=== PATIENT | male | born 1975 | race Caucasian/White ===

== ENCOUNTER 2017-02-24 06:59 | Emergency (ER) | payer MEDICAID, OTHER ==
[2017-02-24 06:59] VITALS: BMI 27.8
[2017-02-24] MEDS ORDERED: Sodium Chloride 0.9% 1,000 ML IV ONE ×2 (07:34→11:21)
[2017-02-24] MEDS ORDERED: Naloxone 0.4 mg/ml Inj (Adult) IV ONE ×2 (07:34→11:40)
[2017-02-24] MEDS ORDERED: Naloxone 0.4 mg/ml Inj (Adult) ONE ×2 (07:36→11:41)
[2017-02-24] MEDS ORDERED: Sodium Chloride 0.9% 1,000 ML ONE ×2 (07:36→11:21)
--- NOTE | 2017-02-24 07:55 | C.PDOC ---
History Of Present Illness 41-year-old male BIBA, "was found drowsy and intoxicated outside on street". At present time, pt appears drowsy, ambulatory, admits " took drug that supposed to be heroin". Pt denies nay other drug or alcohol use. Pt denies known trauma or injury. Admits, dryg use in past. Denies any other active physical complaints , denies CP, SOB, dyspnea, vomiting. Appears not in any apparent distress. Time Seen by Provider: 02/24/17 07:12 Chief Complaint (Nursing): Substance Abuse History Per: EMS History/Exam Limitations: intoxication Current Symptoms Are (Timing): Still Present Severity: Moderate Past Medical History Reviewed: Historical Data, Nursing Documentation, Vital Signs Vital Signs: Last Vital Signs Temp 98.6 F 02/24/17 13:38 Pulse 69 02/24/17 16:32 Resp 16 02/24/17 16:32 BP 93/52 L 02/24/17 16:32 Pulse Ox 96 02/24/17 16:32 - Medical History PMH: Anxiety, Back Problems, Depression, Fractures (ribs), Seizures - [facility] Procedures DRUG DETOXIFICATION (08/04/14) EXCISION OF ESOPHAGUS, ENDO, DIAGN (08/20/16) Family History: States: Unknown Family Hx - Social History Hx Tobacco Use: Yes Hx Alcohol Use: Yes Hx Substance Use: Yes - Immunization History Hx Tetanus Toxoid Vaccination: No Hx Influenza Vaccination: No Hx Pneumococcal Vaccination: No Review Of Systems Review Of Systems: ROS cannot be obtained secondary to pt's inabilty to answer questions. (intoxicated) Constitutional: Negative for: Fever, Chills Cardiovascular: Negative for: Chest Pain Respiratory: Negative for: Shortness of Breath Gastrointestinal: Negative for: Nausea, Vomiting Musculoskeletal: Negative for: Back Pain Physical Exam - Physical Exam Appears: Non-toxic, No Acute Distress, Other (No evidence of trauma/injury. Patient is arousable to verbal stimuli.) Skin: Warm, Dry, No Rash Head: Atraumatic, Normacephalic Eye(s): bilateral: PERRL (pinpoint B/L) Nose: No Flaring, No Discharge, No Deformity, No Tenderness Oral Mucosa: Moist, No Drooling Tongue: No Swelling, No Lesions, No Bleeding Lips: Normal Appearing, No Swelling, No Contusion Throat: No Drooling Neck: Normal ROM, Trachea Midline, No Midline Cervical Tenderness, No Paracervical Tenderness, No Step Off Deformity, Supple Chest: Symmetrical, No Deformity Cardiovascular: Rhythm Regular, No Murmur, No JVD Respiratory: No Decreased Breath Sounds, No Accessory Muscle Use, No Stridor, No Wheezing Gastrointestinal/Abdominal: Soft, No Tenderness, No Distention, No Guarding Back: No Vertebral Tenderness Extremity: Normal ROM, No Deformity, No Swelling Extremity: Bilateral: Atraumatic Neurological/Psych: Oriented x3, Normal Motor, Normal Sensation, Normal Reflexes ED Course And Treatment - Laboratory Results Result Diagrams: 02/24/17 09:11 02/24/17 09:11 ECG: Interpreted By Me, Viewed By Me ECG Rhythm: Sinus Rhythm ECG Interpretation: Normal Interpretation Of ECG: SR@73/min, NAD, T wave inversion in III, no acute ST-T changes. O2 Sat by Pulse Oximetry: 99 Pulse Ox Interpretation: Normal Progress Note: After initial assessment pt received Narcan 0.4 mg. Pt was placed on cardiac and PulseOx monitore. Hydartion with NS IVF. At 10:02, On re -eval, pt is arousable to verbal stimuli. Pt was given PO challenge, tolerated well, no vomiting. At 18:30, AAO#3. Ambulatoy rin Ed with stable gait. Afebrile, hemodynamicaly stable. non-toxic. neurologicaly intact. Continue hydration with IVF. Pt was OBS in ED for 6 hours. On re-eval,Pt is AAO#3, not in any apparent distress. Afebrile, hemodynamicaly stable. non-toxic. Tolerate po well in ED. neck: Supple. Lungs: CTA B/L, BS equal B/L. CVS: (+) S1S2, reg. Lungs: CTA B/L, Bs equal B/L. Abd: benign. Neurologicaly intact. Blood work review and appears normal. Pt has clinical findings c/w opioid overdose. Pt advised detox. Return to ED if any worsening or new changes. Disposition Counseled Patient/Family Regarding: Diagnosis, Need For Followup - Disposition Referrals: [facility] [Outside] Disposition: HOME/ ROUTINE Disposition Time: 18:43 Condition: STABLE Additional Instructions: FOLLOW UP WITH [facility] [phone] FOR FURTHER TREATMENT OPIOID ABUSE RETURN TO ED IF ANY NEW CHANGES. Instructions: Opioid Overdose (ED) Forms: [facility] (Slovak) - Clinical Impression Clinical Impression: Heroin overdose - Scribe Statement The provider has reviewed the documentation as recorded by the Scribe (Levy Sprague) All medical record entries made by the Scribe were at my direction and personally dictated by me. I have reviewed the chart and agree that the record accurately reflects my personal performance of the history, physical exam, medical decision making, and the department course for this patient. I have also personally directed, reviewed, and agree with the discharge instructions and disposition.
[2017-02-24 09:15] LABS: BASO # 0.1 K/uL (0.0-0.2); EOS # 0.3 K/uL (0.0-0.7); EOS % 3.7 % (0.0-4.0); HEMATOCRIT 40.1 % (35.0-51.0); LYMPH # 3.3 K/uL (1.0-4.3); LYMPH % 39.3 % (20.0-40.0); MEAN CELL VOLUME 87.3 fL (80.0-94.0); MEAN CORPUSCULAR HEMOGLOBIN 28.9 pg (27.0-31.0); MEAN CORPUSCULAR HGB CONC 33.1 g/dL (33.0-37.0); MEAN PLATELET VOLUME 9.2 fL (7.2-11.7); MONO # 0.6 K/uL (0.0-0.8); MONO % 7.3 % (0.0-10.0); NRBC % 0.1 % (0.0-2.0); RED CELL DISTRIBUTION WIDTH 14.8 % (11.5-14.5); WHITE BLOOD COUNT 8.3 K/uL (4.8-10.8)
[2017-02-24 09:27] LABS: BLOOD UREA NITROGEN 17 mg/dL (9-20); CALCIUM 8.2 mg/dl (8.6-10.4); CARBON DIOXIDE 27 mmol/L (22-30); CHLORIDE 99 mmol/L (98-107); GFR AFRICAN-AMERICAN > 60; GLUCOSE,RANDOM 69 mg/dL (75-110); POTASSIUM 3.7 mmol/L (3.6-5.2); SODIUM 135 mmol/L (132-148)
[2017-02-24 13:41] VITALS: TEMP 98.6
[2017-02-24 18:58] VITALS: BP 110/61; PULSE 75; RESP 18; O2SAT 100
--- NOTE | 2017-02-28 10:55 | CARD ---
APPROVED REPORT EKG Measurement Heart [id number] <Conclusion> Normal sinus rhythm Normal ECG
== END 2017-02-24 19:10 | disposition home or self-care (01) ==
LOC: C.ER 06:59
DX: T40.1X1A Poisoning by heroin, accidental (unintentional), initial encounter (principal)
CPT/HCPCS: 80048; 82948; 84484; 85025; 93005; 96361; 96374; 96375; 96376; 99285; J2310; J2405; J7040